=== PATIENT | male | born 1980 | race African-American/Black ===

== ENCOUNTER 2016-05-17 12:01 | Emergency (ER) | payer OTHER ==
[2016-05-17 12:09] VITALS: TEMP 98.4; BMI 18.8
--- NOTE | 2016-05-17 12:45 | PDOC ---
History of Present Illness - General History Source: Patient Exam Limitations: No Limitations - History of Present Illness Initial Comments: 05/17/16 13:33 The patient is a 36 year old male with no significant PMHx, sent by PCP for URI symptoms, BP 90/60 and 2 episodes of vertigo in the office today. PCP was called and requested the patient to receive IV fluids and to be treated for vertigo symptoms. Patient reports 8 days of symptoms, nasal congestion, sinus pressure, clear nasal discharge. He also complains of room spinning vertigo, which occurs with movement of his head. It is worse in the morning when he gets up in the morning from lying down to standing up. It is also worse when he looks down then looks up. The patient also reports a chronic, intermittent frontal headache. The headache is mild and unchanged from baseline. The patient denies fever, chills, abdominal pain, nausea, vomiting, throat pain, neck pain, photophobia, chest pain, SOB, urinary complaints, recent injury or trauma. <Lay Sequeira - Last Filed: 05/17/16 13:33> <Dileep Gutierrez - Last Filed: 05/17/16 15:34> - General Chief Complaint: Lightheaded Stated Complaint: PCP SENT, VERTIGO, FLU Time Seen by Provider: 05/17/16 12:14 Past History <Lay Sequeira - Last Filed: 05/17/16 13:33> - Past Medical History Anemia: No Other medical history: DENIES. - Immunization History Immunization Up to Date: No - Psycho/Social/Smoking Cessation Hx Anxiety: No Suicidal Ideation: No Smoking Status: No Smoking History: Never smoked Have you smoked in the past 12 months: No Number of Cigarettes Smoked Daily: 0 Hx Alcohol Use: No Drug/Substance Use Hx: No Substance Use Type: None <Dileep Gutierrez - Last Filed: 05/17/16 15:34> - Past Medical History Allergies/Adverse Reactions: Allergies Allergy/AdvReac Type Severity Reaction Status Date / Time aspirin Allergy "feel bad" Verified 05/17/16 12:06 Home Medications: Ambulatory Orders Meclizine HCl 25 mg PO TID PRN #30 tablet 05/17/16 Pseudoephedrine HCl [Sudafed] 60 mg PO Q6H PRN #30 tablet 05/17/16 Review of Systems - Review of Systems Able to Perform ROS?: Yes Comments:: 05/17/16 13:33 CONSTITUTIONAL: Absent: Fever, Chills, Diaphoresis, Generalized Weakness, Malaise, Loss of Appetite HEENT: Present: nasal congestion, sinus pressure, clear nasal discharge Absent: Throat Pain, Throat Swelling, Difficulty Swallowing, Mouth Swelling, Ear Pain, Eye Pain, Visual Changes CARDIOVASCULAR: Present: hypotension Absent: Chest Pain, Syncope, Palpitations, Irregular Heart Rate, Lightheadedness , Peripheral Edema RESPIRATORY: Absent: Cough, Shortness of Breath, SOB with Exertion, Orthopnea, Wheezing, Stridor, Hemoptysis GASTROINTESTINAL: Absent: Abdominal pain, Abdominal Distension, Nausea, Vomiting, Diarrhea, Constipation, Melena, Hematochezia GENITOURINARY: Absent: Dysuria, Frequency, Urgency, Hesitancy, Flank Pain, Genital Pain MUSCULOSKELETAL: Absent: Myalgia, Arthralgia, Joint Swelling, Back pain, Neck Pain SKIN: Absent: Rash, Itching, Pallor HEMATOLOGIC/IMMUNOLOGIC: Absent: Easy Bleeding, Easy Bruising, Lymphadenopathy, Frequent infections ENDOCRINE: Absent: Unexplained Weight Gain, Unexplained Weight Loss, Heat Intolerance, Cold Intolerance NEUROLOGIC: Present: headache, vertigo Absent: Focal Weakness, Paresthesias, Lightheadedness, Unsteady Gait, Seizure, Mental Status Changes, Incontinence PSYCHIATRIC: Absent: Anxiety, Depression <Lay Sequeira - Last Filed: 05/17/16 13:33> *Physical Exam - Vital Signs Last Vital Signs Temp Pulse Resp BP Pulse Ox 98.4 F 86 18 101/61 100 05/17/16 12:05 05/17/16 12:05 05/17/16 12:05 05/17/16 12:05 05/17/16 12:05 - Physical Exam Comments: 05/17/16 13:33 GENERAL: The patient is awake, alert, and fully oriented, in no acute distress. HEAD: Normal with no signs of trauma. EYES: Pupils equal, round and reactive to light, extraocular movements intact, sclera anicteric, conjunctiva clear. ENT: Normal TMs bilaterally. Ears normal, nares have red swollen membranes with clear discharge, no sinus tenderness, oropharynx clear without exudates. Moist mucous membranes. NECK: Normal range of motion, supple without lymphadenopathy, JVD, or masses. LUNGS: Breath sounds equal, clear to auscultation bilaterally. No wheezes, and no crackles. HEART: Regular rate and rhythm, normal S1 and S2 without murmur, rub or gallop. ABDOMEN: Soft, nontender, normoactive bowel sounds. No guarding, no rebound. No masses. EXTREMITIES: Normal range of motion, no edema. No clubbing or cyanosis. No cords , erythema, or tenderness. NEUROLOGICAL: Cranial nerves II through XII grossly intact. Normal speech, normal gait. No focal weakness. No sensory deficits. Normal cerebellar exam. No nystagmus. PSYCH: Normal mood, normal affect. SKIN: Warm, Dry, normal turgor, no rashes or lesions noted. <Lay Sequeira - Last Filed: 05/17/16 13:33> - Vital Signs Last Vital Signs Temp Pulse Resp BP Pulse Ox 98.4 F 86 18 101/61 100 05/17/16 12:05 05/17/16 12:05 05/17/16 12:05 05/17/16 12:05 05/17/16 12:05 <Dileep Gutierrez - Last Filed: 05/17/16 15:34> ED Treatment Course - LABORATORY CBC & Chemistry Diagram: 05/17/16 13:00 05/17/16 13:00 - ADDITIONAL ORDERS Additional order review: 05/17/16 13:00 RBC 4.81 MCV 90.5 MCHC 33.3 RDW 12.8 MPV 9.9 Neutrophils % 44.4 D Lymphocytes % 42.1 H D Monocytes % 11.8 H D Eosinophils % 0.9 D Basophils % 0.8 - Medications Given in the ED: ED Medications Discontinued Medications Generic Name Dose Route Start Last Admin Trade Name Freq PRN Reason Stop Dose Admin Meclizine HCl 25 mg 05/17/16 12:55 05/17/16 13:03 Antivert - PO 05/17/16 12:56 25 mg ONCE ONE Administration Sodium Chloride 1,000 ml 05/17/16 12:54 05/17/16 13:03 Normal Saline - IV 05/17/16 12:55 1,000 ml ONCE ONE Administration <Lay Sequeira - Last Filed: 05/17/16 13:33> - LABORATORY CBC & Chemistry Diagram: 05/17/16 13:00 05/17/16 13:00 <Dileep Gutierrez - Last Filed: 05/17/16 15:34> Medical Decision Making - Medical Decision Making 05/17/16 15:28 Patient presents with symptoms of vertigo for several days. The symptoms get worse with movement. There are better at rest. He presents with a classic history for positional vertigo. Patient was seen by Dr. Davenport today and given his symptoms, he was sent to the ED. There was a consideration that he might be volume depleted because his systolic blood pressure in the office was in the 90s. He got a liter of IV fluids here along with meclizine and he is feeling much better. His physical examination was notable for nasal congestion and sinusitis symptoms. The discharge from the nose is clear, and the symptoms have only been present for slightly less than a week. The likelihood is viral sinusitis and there is no need for antibiotics. Laboratory studies reviewed. Laboratory Results - last 24 hr 05/17/16 05/17/16 13:00 13:00 WBC 3.6 L D RBC 4.81 Hgb 14.5 Hct 43.6 MCV 90.5 MCHC 33.3 RDW 12.8 Plt Count 140 D MPV 9.9 Neutrophils % 44.4 D Lymphocytes % 42.1 H D Monocytes % 11.8 H D Eosinophils % 0.9 D Basophils % 0.8 Sodium 140 Potassium 4.2 Chloride 103 Carbon Dioxide 31 Anion Gap 6 L BUN 12 Creatinine 1.0 Creat Clearance w eGFR > 60 Random Glucose 88 D Calcium 8.4 L Total Bilirubin 0.4 D AST 21 D ALT 20 Alkaline Phosphatase 50 Total Protein 6.5 Albumin 3.5 Patient is symptomatically much improved. He is stable for discharge. He asked for an expiration of brain imaging and I explained that peripheral vertigo is not an indication for CT scanning. He states he will follow-up with Dr. Davenport and discuss this further if the symptoms have not resolved over the next week. The scribe's documentation has been prepared under my direction and personally reviewed by me in its entirety. I have confirmed that the note above accurately reflects all work, treatment, procedures, and medical decision- making performed by me. <Dileep Gutierrez - Last Filed: 05/17/16 15:34> *DC/Admit/Observation/Transfer - Attestations Scribe Attestion: 05/17/16 13:33 Documentation prepared by Lay Sequeira, acting as medical safety director for Dileep Gutierrez MD. <Lay Sequeira - Last Filed: 05/17/16 13:33> - Discharge Dispostion Admit: No <Dileep Gutierrez - Last Filed: 05/17/16 15:34> Diagnosis at time of Disposition: Positional vertigo Qualifiers: Laterality: unspecified laterality Qualified Code(s): H81.10 - Benign paroxysmal vertigo, unspecified ear - Discharge Dispostion Disposition: HOME Condition at time of disposition: Improved - Prescriptions Prescriptions: Meclizine HCl 25 mg PO TID PRN #30 tablet PRN Reason: Vertigo Pseudoephedrine HCl [Sudafed] 60 mg PO Q6H PRN #30 tablet PRN Reason: sinus congestion - Referrals Referrals: Bettie Khalil MD [Primary Care Provider] - - Patient Instructions Printed Discharge Instructions: Benign Paroxysmal Positional Vertigo Additional Instructions: You were evaluated today for vertigo worse with movement of your head. This is caused by peripheral vertigo, a condition in the ear. Take Sudafed for sinus congestion. Take meclizine as needed for vertigo. Follow up with your primary care doctor, Dr. Davenport next week. Return to the emergency department for any severe or progressive symptoms.
[2016-05-17] MEDS ORDERED: SODIUM CHLORIDE 0.9% 1000 ML INFUS.BAG IV ONE (12:54)
[2016-05-17] MEDS ORDERED: MECLIZINE HCL 25 MG TABLET (FP) PO ONE (12:55)
[2016-05-17] MEDS ORDERED: MECLIZINE HCL 25 MG TABLET (FP) ONE (12:58)
[2016-05-17 13:09] LABS: BASOPHIL 0.8 % (0-2.0); EOSINOPHIL 0.9 % (0-4.5); MCH 30.1 pg (25.7-33.7); MCHC 33.3 g/dl (32.0-35.9); MEAN CELL VOLUME 90.5 fl (80-96); MEAN PLT VOLUME 9.9 fl (7.5-11.1); NEUTROPHILS 44.4 % (42.8-82.8); PLATELET COUNT 140 K/MM3 (134-434); RDW 12.8 % (11.9-15.9); WHITE BLOOD COUNT 3.6 K/mm3 (4.0-10.0)
[2016-05-17 13:54] LABS: ALBUMIN 3.5 g/dl (3.4-5.0); ANION GAP 6 (8-16); BILIRUBIN,TOTAL 0.4 mg/dL (0.2-1.0); CALCIUM 8.4 mg/dL (8.5-10.1); CO2 31 mmol/L (21-32); GLUCOSE,RANDOM 88 mg/dL (74-106); SGOT/AST 21 U/L (15-37); SGPT/ALT 20 U/L (12-78); TOT PROT 6.5 g/dl (6.4-8.2)
[2016-05-17 13:55] LABS: ALK PHOS 50 U/L (45-117)
[2016-05-17 16:04] VITALS: BP 97/54; PULSE 79
== END 2016-05-17 16:05 | disposition home or self-care (01) ==
LOC: JER 12:01 → SUPCPDRO 12:01 → JER 16:05
DX: H81.10 Benign paroxysmal vertigo, unspecified ear (principal); I95.89 Other hypotension
CPT/HCPCS: 36415; 80053; 85025; 99283-25

== ENCOUNTER 2017-12-30 09:45 | Emergency (ER) | payer OTHER ==
--- NOTE | 2017-12-30 09:51 | PDOC ---
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 Minute amount of bleeding , no pain. Review of systems: Denies distal numbness tingling pain or weakness of the finger. Past medical history: Healthy male, no current medical or surgical problems. HIV testing 2 years ago was negative. No liver disease. Immunized against hepatitis B Social/family history reviewed and noncontributory Physical exam: Alert oriented no acute distress cooperative Afebrile, vital signs normal Less than 1 mm puncture wound the base of the finger, extremely superficial, no bleeding. Distal sensation completely intact. Flexor and extensor tendons with normal strength against resistance Impression: Needlestick protocol Plan: The patient was interviewed by the operating room staff. 62-year-old male with no risk factors for HIV, agreed to testing. HIV testing is negative. Employee health was contacted. They will follow up tomorrow, checking additional results from the patient as well as the source. No prophylaxis recommended at this point. To keep clean and dry today and follow-up if any sign of infection. Past History - Past Medical History Allergies/Adverse Reactions: Allergies Allergy/AdvReac Type Severity Reaction Status Date / Time aspirin AdvReac "feel bad" Verified 12/30/17 10:33 Home Medications: Ambulatory Orders NK [No Known Home Medication] 12/30/17 Anemia: No - Immunization History Immunization Up to Date: No - Suicide/Smoking/Psychosocial Hx Smoking Status: No Smoking History: Never smoked Have you smoked in the past 12 months: No Number of Cigarettes Smoked Daily: 0 Hx Alcohol Use: No Drug/Substance Use Hx: No Substance Use Type: None *DC/Admit/Observation/Transfer Diagnosis at time of Disposition: Exposure to blood or body fluid - Discharge Dispostion Disposition: HOME Condition at time of disposition: Stable Decision to Admit order: No - Referrals - Patient Instructions Printed Discharge Instructions: DI for Accidental Exposure to Body Fluids Additional Instructions: Clean and dry today. If no pain or sign of infection may resume normal work activity tomorrow. - Post Discharge Activity Forms/Work/School Notes: Back to Work
[2017-12-30 10:10] VITALS: BP 116/81; PULSE 85; TEMP 98.6; BMI 19.3
[2018-01-01 08:06] LABS: FIBROSIS SCORE. 0.15 (0.00-0.21); HCV ALPHA 2 MACRO CHART 181 mg/dL (110-276); HCV GGT 24 IU/L (0-65); NECRO.INFLAM ACT.SCORE 0.04 (0.00-0.17); NECROINFLAM. ACTIVITY GRADE A0-No activity (.)
== END 2017-12-30 14:36 | disposition home or self-care (01) ==
LOC: FER 09:45
DX: Z77.21 Contact with and (suspected) exposure to potentially hazardous body fluids (principal); W46.0XXA Contact with hypodermic needle, initial encounter; Y93.89 Activity, other specified; Y92.234 Operating room of hospital as the place of occurrence of the external cause; Y99.0 Civilian activity done for income or pay
CPT/HCPCS: 36415; 82172; 82977; 83010; 83883; 84460; 86803; 87350; 99282-25